=== PATIENT | female | born 1990 | race Caucasian/White ===

== ENCOUNTER → 2022-05-25 13:00 | Outpatient (BNVA) | payer SELFPAY | PROVIDERS: PCP Family Medicine; Visit Provider Nurse Practitioner Women's Health | DX: Z34.90 Encounter for supervision of normal pregnancy, unspecified, unspecified trimester (principal); N92.6 Irregular menstruation, unspecified; R82.90 Unspecified abnormal findings in urine | CPT/HCPCS: 81000; 81025; 82950; 85025; 87086 ==

== ENCOUNTER → 2022-05-28 08:50 | Outpatient (BNVA) | payer SELFPAY | PROVIDERS: PCP Family Medicine; Visit Provider Nurse Practitioner Women's Health | DX: O09.90 Supervision of high risk pregnancy, unspecified, unspecified trimester (principal); Z3A.00 Weeks of gestation of pregnancy not specified | CPT/HCPCS: 82951; 82952 ==

== ENCOUNTER → 2022-06-02 15:24 | Outpatient (BNVA) | payer SELFPAY | PROVIDERS: PCP Family Medicine; Visit Provider Obstetrics & Gynecology | DX: O09.219 Supervision of pregnancy with history of pre-term labor, unspecified trimester (principal); Z3A.00 Weeks of gestation of pregnancy not specified | CPT/HCPCS: 80307; 81000; 81241; 84443; 85610; 85613; 85730; 86147; 86160; 86162; 86235; 86255; 86376; 86592; 86762; 86803; 86850; 86900; 87340; 87806 ==

== ENCOUNTER → 2022-06-10 10:00 | Outpatient (BNVA) | payer SELFPAY | PROVIDERS: PCP Family Medicine; Visit Provider Obstetrics & Gynecology | DX: O09.899 Supervision of other high risk pregnancies, unspecified trimester (principal); O20.9 Hemorrhage in early pregnancy, unspecified; Z3A.00 Weeks of gestation of pregnancy not specified | CPT/HCPCS: 81000; 87086 ==

== ENCOUNTER 2022-06-16 16:46 | Emergency (ER) | payer SELFPAY ==
[2022-06-16 16:47] VITALS: BP 119/82; PULSE 91; RESP 17; TEMP 36.3; O2SAT 99; BMI 29.5
--- NOTE | 2022-06-16 17:00 | ED_ITS ---
HPI - Headache General: Chief Complaint: Headache Stated Complaint: headache, 9 weeks Time Seen by Provider: 06/16/22 17:00 History of Present Illness: Ms Dumont is a 32-year-old lady currently approximately 9 to 10 weeks presenting to the emergency department due to headache. She reports about 5 days ago having 2 days of nausea and vomiting. Since that time she has had generalized malaise including headache. Denies any focal neurologic abnormalities identified with this however does not have a frequent history of headache. Intensity symptoms moderate. Course has persisted. 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 No other specific changes in health, exacerbating, or alleviating factors identified. Onset (ago): day(s) Onset description: gradually Severity: moderate Exacerbating factors: none Relieving factors: nothing Associated symptoms: Reports nausea and vomiting Review of Systems General: Reports: 10 or more systems reviewed and unremarkable except in HPI and below GI: Reports: nausea and vomiting PFSH ED PFSH: Medical History History of gestational hypertension Hx gestational diabetes No pertinent past medical history neghx: htn,dm,thyroid,dvt/pe PCP: [facility] Surgical History Hx of section 2008 2009 2010 2013 2018 Hx of cholecystectomy (~2010) Hx of dilation and curettage x 4 Family History Other Adopted Physical Exam Const: COMMON NORMALS: alert GENERAL APPEARANCE: cooperative and well developed HENMT: COMMON NORMALS: normocephalic and atraumatic HEAD & SCALP: normocephalic and atraumatic THROAT: posterior oropharynx normal Eye: COMMON NORMALS: conjunctivae normal CONJUNCTIVA: Yes conjunctivae normal SCLERA: sclerae normal Neck/C-Spine: COMMON NORMALS: supple GENERAL: Yes trachea midline Resp: COMMON NORMALS: normal respiratory effort and clear to auscultation bilaterally EFFORT & INSPECTION: Yes able to speak in complete sentences AUSCULTATION: clear to auscultation bilaterally Cardio: COMMON NORMALS: regular rate and regular rhythm RATE: regular rate RHYTHM: regular rhythm GI: COMMON NORMALS: Soft to palpation PALPATION: Yes Soft to palpation and No Tenderness to palpation present (GI) Extremity: GENERAL: Yes normal exam except as noted and No edema Neuro: COMMON NORMALS: moves all extremities SENSORIUM/ORIENTATION: Yes alert and No Orientation impaired Psych: COMMON NORMALS: mental status grossly normal and Normal thought process present THOUGHT PROCESS: Normal thought process present Course Vital Signs: Vital signs: Vital Signs Temperature 97.4 F L 06/16/22 16:47 Pulse Rate 85 06/16/22 19:25 Respiratory Rate 14 06/16/22 19:25 Blood Pressure 99/63 06/16/22 19:25 Pulse Oximetry 98 06/16/22 19:25 Oxygen Delivery Me thod 06/16/22 17:52 MDM - Headache Medical Decision Making 32-year-old lady presenting with headache and generalized illness currently . Exam as above, no meningismus or neurologic deficits. Labs with mild leukocytosis, metabolic panel with mild dehydration, renal fu nction is preserved. No evidence of urine tract infection. Influenza negative. Patient climbed COVID testing. Prior ultrasound report reviewed. Given physical exam findings and reported clinical history I do not feel that repeat imaging is required at this time. Patient felt significantly improved with near complete resolution of symptoms with treatment and IV fluids in the emergency department. Most likely etiology of patient symptoms is dehydration of uncertain etiology possibly viral nature or related to . The results of ED evaluation were discussed with the patient including prescriptions and/or symptomatic cares (if applicable) including appropriate and responsible use, followup plan, and return precautions. The patient verbalized understanding and felt safe for discharge. Medical Records I reviewed the patient's medical records. Lab Data I reviewed the patient's lab results. 06/16/22 17:28 06/16/22 17: Laboratory Results WBC 11.7 10^3/uL (4.0-10.0) H 06/16/22 17: RBC 4.61 10^6/uL (4.1-5.3) 06/16/22 17: Hgb 14.3 g/dL (11.5-15.3) 06/16/22 17: Hct 41.9 % (37.0-47.0) 06/16/22 17: MCV 90.9 fl (81-99) 06/16/22 17: MCH 31.0 pg (28.0-34.0) 06/16/22 17: MCHC 34.1 g/dL (30.0-36.0) 06/16/22: RDW 12.4 % (12.1-15.1) 06/16/22 17: Plt Count 322 10^3/cmm (130-400) 06/16/22: MPV 10.7 fL (7.4-10.4) H 06/16/22 17: Neut % (Auto) 73.4 % 06/16/22: Lymph % (Auto) 21.4 % 06/16/22: [place] % (Auto) 3.3 % 06/16/22: Eos % (Auto) 1.2 % 06/16/22: Baso % (Auto) 0.3 % 06/16/22: Neut # (Auto) 8.56 10^3/uL (1.8-7.7) H 06/16/22: Lymph # (Auto) 2.5 10^3/uL (0.8-4.8) 06/16/22: [place] # (Auto) 0.4 10^3/uL (0.2-0.9) 06/16/22: Eos # (Auto) 0.1 10^3/uL (0.0-0.8) 06/16/22: Baso # (Auto) 0.0 10^3/uL (0.0-0.1) 06/16/22: Nucleated RBC % (auto) 0 % 06/16/22: Nucleated RBCs # 0.0 /100WBC 06/16/22: Sodium 133 mmol/L (136-145) L 06/16/22: Potassium 3.5 mmol/L (3.5-5.1) 06/16/22: Chloride 96 mmol/L (98-107) L 06/16/22: Carbon Dioxide 25 mmol/L (22-29) 06/16/22: Anion Gap 15.5 (5-19) 06/16/22: BUN 8 mg/dL (6-20) 01/04/23 17:28 Creatinine 0.4 mg/dL (0.5-0.9) L 06/16/22 17:28 GFR Calculation 182.7 mL/min (90-130) H 06/16/22 17:28 Glucose 83 mg/dL (65-115) 06/16/22 17:28 Calculated Osmolality 273 mOsm/kg (285-295) L 06/16/22 17:28 Calcium 9.8 mg/dL (8.5-10.5) 06/16/22 17:28 Magnesium 2.0 mg/dL (1.7-2.3) 06/16/22 17:28 Total Bilirubin 0.2 mg/dL (0.15-1.2) 06/16/22 17:28 AST 17 U/L (0-32) 06/16/22 17:28 ALT 13 U/L (0-33) 06/16/22 17:28 Alkaline Phosphatase 69 U/L (35-105) 06/16/22 17:28 Total Protein 7.5 g/dL (6.6-8.7) 06/16/22 17:28 Albumin 4.3 g/dL (3.5-5.2) 06/16/22 17:28 Globulin 3.2 g/dL (1.3-4.6) 06/16/22 17:28 Urine Color Yellow (Yellow) 06/16/22 16:49 Urine Appearance Clear (CLEAR) 06/16/22 16:49 Urine pH 6.5 (5-7) 06/16/22 16:49 Ur Specific [place] 1.020 (1.005-1.030) 06/16/22 16:49 Urine Protein Neg (Negative) 06/16/22 16:49 Urine Glucose (UA) Norm (Normal) 06/16/22 16:49 Urine Ketones Negative (Negative) 06/16/22 16:49 Urine Blood Neg (Negative) 06/16/22 16:49 Urine Nitrate Negative (Negative) 06/16/22 16:49 Urine Bilirubin Neg (Negative) 06/16/22 16:49 Urine Urobilinogen Norm mg/dL (Negative) 06/16/22 16:49 Ur Leukocyte Esterase Negative (Negative) 06/16/22 16:49 Influenza Type A Ag negative (Negative) 06/16/22 17:34 Influenza Type B Ag negative (Negative) 06/16/22 17:34 Discharge Plan Discharge Patient Disposition: Home Clinical Impression: Headache, Dehydration, Acute viral syndrome, Nausea and vomiting during Condition: Stable Prescriptions: No Action levothyroxine 50 mcg capsule 50 mcg PO DAILY Qty: 90 4RF progesterone micronized 200 mg capsule 200 mg PO BID prenat.vits,jaqueline,[id number] Tablet 1 tab PO DAILY multivitamin Tablet 1 tab PO DAILY (DME) blood-glucose meter [Accu-Chek Guide Glucose Meter] Misc See Rx Instructions .Route Qty: 1 0RF Rx Instructions: As directed (DME) Accu-Chek Guide test strips Strip See Rx Instructions .Route Qty: 100 0RF Rx Instructions: As directed (DME) Comfort Touch Ult Thin Lancets 31 gauge misc See Rx Instructions .Route Qty: 100 0RF Rx Instructions: As directed ondansetron 4 mg tablet,disintegrating 4 mg PO Q8H PRN (Reason: nausea and vomiting) Qty: 60 2RF Discharge Orders: Discharge ED (Routine); Ordered 06/16/22 Ordered By: Luther Nur Referrals: Logan Escobar MD [Primary Care Provider] - Discharge Diet: Advance as tolerated and Clear Liquid Discharge Activity: Increase activity as tolerated Patient Instructions: Nausea and Vomiting in (ED), Dehydration (ED), Opioid Safety, Pain Management Activity Restrictions/Additional Instructions: Thank you for visiting the emergency department. You were seen and evaluated for headache and generalized illness. The exact cause of your symptoms is unclear though may be related to viral syndrome. We are pleased that you had improvement in the emergency department. Please follow-up with your client sales and service officer and primary care provider. Return to the emergency department for uncontrolled symptoms or anything that you are concerned about and feel needs emergency department evaluation. Coding Level of Care Code ED [facility] for [facility] Exam Comprehensive
[2022-06-16] MEDS: metoclopramide 5 mg/mL SDV 2 mL 10 MG IVP (17:44)
[2022-06-16] MEDS: sodium chloride 0.9% 1,000 ML 999 ML IV (17:44)
[2022-06-16] MEDS: acetaminophen 1,000 MG/100 ML PIGGYBACK 400 MG IV (17:45)
[2022-06-16 17:46] LABS: Add Urine Microscopic? NO; Charge for UA Resulting for Rev
[2022-06-16 17:52] VITALS: BP 116/69; PULSE 88; O2SAT 97
[2022-06-16 18:19] LABS: Bilirubin Urine Neg (Negative); Blood Urine Neg (Negative); Glucose Urine UA Norm (Normal); Ketones Urine Negative (Negative); Leukocyte Esterase Urine Negative (Negative); Nitrate Urine Negative (Negative); Protein Urine Neg (Negative); Urine Appearance Clear (CLEAR); Urine Color Yellow (Yellow); Urobilinogen Urine Norm (Negative); pH Urine 6.5 (5-7)
[2022-06-16 18:20] LABS: Basophils % 0.3 %; Eosinophils # 0.1 10^3/uL (0.0-0.8); Eosinophils % 1.2 %; Hematocrit 41.9 % (37.0-47.0); Hemoglobin 14.3 g/dL (11.5-15.3); Lymphocytes # 2.5 10^3/uL (0.8-4.8); Lymphocytes % 21.4 %; Mean Corpuscular HGB Conc 34.1 g/dL (30.0-36.0); Mean Corpuscular Volume 90.9 fl (81-99); Mean Platelet Volume 10.7 fL (7.4-10.4); Monocytes # 0.4 10^3/uL (0.2-0.9); Monocytes % 3.3 %; Neutrophils # 8.56 10^3/uL (1.8-7.7); Neutrophils % 73.4 %; Nucleated Red Blood Cells % 0 %; Platelet Count 322 10^3/cmm (130-400); Red Blood Count 4.61 10^6/uL (4.1-5.3); Red Cell Distribution Width 12.4 % (12.1-15.1); White Blood Count 11.7 10^3/uL (4.0-10.0)
[2022-06-16 18:29] LABS: Influenza A by IFA negative (Negative); Influenza B by IFA negative (Negative)
[2022-06-16 18:44] LABS: Alanine Aminotransferase 13 U/L (0-33); Albumin Level 4.3 g/dL (3.5-5.2); Alkaline Phosphatase 69 U/L (35-105); Anion Gap 15.5 (5-19); Aspartate Amino Transferase 17 U/L (0-32); Blood Urea Nitrogen 8 mg/dL (6-20); Calcium 9.8 mg/dL (8.5-10.5); Carbon Dioxide 25 mmol/L (22-29); Chloride 96 mmol/L (98-107); Globulin 3.2 g/dL (1.3-4.6); Glomerular Filtration Rate 182.7 mL/min (90-130); Glucose 83 mg/dL (65-115); Osmolality Calculated 273 mOsm/kg (285-295); Potassium 3.5 mmol/L (3.5-5.1); Sodium 133 mmol/L (136-145); Total Bilirubin 0.2 mg/dL (0.15-1.2); Total Protein 7.5 g/dL (6.6-8.7)
[2022-06-16 19:25] VITALS: BP 99/63; PULSE 85; RESP 14; O2SAT 98
== END 2022-06-16 19:26 | disposition home or self-care (01) ==
PROVIDERS: Emergency Provider Emergency Medicine; PCP Family Medicine
DX: O26.891 Other specified pregnancy related conditions, first trimester (principal); R51.9 Headache, unspecified; E86.0 Dehydration; B34.9 Viral infection, unspecified; O21.9 Vomiting of pregnancy, unspecified; Z3A.10 10 weeks gestation of pregnancy
CPT/HCPCS: 80053; 81003; 83735; 85025; 87804; 96361; 96374; 96375; 99284; J0131; J2765; J7030